=== PATIENT | male | born 1950 | race Caucasian/White ===

== ENCOUNTER 2019-10-11 07:36 | Outpatient (CLI) | payer MEDICARE, SELFPAY ==
[2019-10-11 08:31] LABS: Alanine Aminotransferase 66 U/L (4-50); Albumin Level 4.5 g/dL (3.5-5.1); Alkaline Phosphatase 124 U/L (38-126); Aspartate Amino Transferase 50 U/L (17-59); Bilirubin,Total 0.7 mg/dL (0.2-1.3); Blood Urea Nitrogen 21 mg/dL (9-20); Calcium 10.9 mg/dL (8.4-10.2); Carbon Dioxide 29 mmol/L (22-30); Chloride 99 mmol/L (98-107); Cholesterol 103 mg/dL (0-200); Estimated Glomerular Filt Rate > 60; Glucose 107 mg/dL (75-110); HDL Direct 37 mg/dL; Potassium 3.9 mmol/L (3.4-5.0); Sodium 136 mmol/L (137-145); Triglycerides 159 mg/dL (<150)
[2019-10-11 08:39] LABS: Hemoglobin A1C 5.8 % (<5.7)
[2019-10-11 08:41] LABS: LDL Cholesterol Direct 45 mg/dL
== END 2019-10-11 07:37 | disposition home or self-care (01) ==
LOC: ANHLAB 07:40
PROVIDERS: PCP Internal Medicine; Visit Provider Internal Medicine
DX: E78.5 Hyperlipidemia, unspecified (principal); E11.9 Type 2 diabetes mellitus without complications; I10 Essential (primary) hypertension; R94.5 Abnormal results of liver function studies
CPT/HCPCS: 36415; 80053; 80061; 83036

== ENCOUNTER 2019-12-07 15:47 | Outpatient (CLI) | payer MEDICARE, SELFPAY ==
[2019-12-07 16:58] LABS: Anion Gap 9 mmol/L (8-16); Blood Urea Nitrogen 24 mg/dL (9-20); Calcium 12.6 mg/dL (8.4-10.2); Carbon Dioxide 30 mmol/L (22-30); Chloride 97 mmol/L (98-107); Estimated Glomerular Filt Rate > 60; Glucose 93 mg/dL (75-110); Phosphorus 2.8 mg/dL (2.5-4.5); Potassium 4.1 mmol/L (3.4-5.0); Sodium 136 mmol/L (137-145); Uric Acid 7.5 mg/dL (3.5-8.5)
[2019-12-07 18:01] LABS: Vitamin D 25 Hydroxy 40.4 ng/mL
[2019-12-09 11:05] LABS: Kappa\\Lambda Light Chains 1.76 (0.26-1.65)
[2019-12-10 06:15] LABS: Angiotensin Converting Enzyme 9 U/L (9-67)
== END 2019-12-07 15:48 | disposition home or self-care (01) ==
LOC: ANHLAB 15:56
PROVIDERS: PCP Internal Medicine; Visit Provider Internal Medicine Nephrology
DX: E83.52 Hypercalcemia (principal); I10 Essential (primary) hypertension; N20.0 Calculus of kidney
CPT/HCPCS: 36415; 80069; 82164; 82306; 83883; 83970; 84443; 84550; 86334; 86335

== ENCOUNTER 2019-12-09 12:58 | Outpatient (CLI) | payer MEDICARE, SELFPAY ==
[2019-12-16 04:43] LABS: Total Volume 1200 mL; Urine Calcium 53.8 mg/dL
== END 2019-12-09 12:59 | disposition home or self-care (01) ==
PROVIDERS: PCP Internal Medicine; Visit Provider Internal Medicine Nephrology
DX: E83.52 Hypercalcemia (principal); I10 Essential (primary) hypertension; N20.0 Calculus of kidney
CPT/HCPCS: 82131; 82340

== ENCOUNTER 2019-12-27 08:24 | Outpatient (CLI) | payer MEDICARE, SELFPAY ==
--- NOTE | ~2019-12-27 | NM_ITS ---
EXAMINATION: NM parathyroid w imaging DATE: 12/27/2019 11:48 INDICATION: Hyperparathyroidism. Hypercalcemia. TECHNIQUE: 20.5 mCi Tc99m sestamibi was administered intravenously. Anterior images of the neck were obtained immediately and at 2 hours. SPECT images of the neck were obtained. COMPARISON: None. FINDINGS: There is no focus of persistent activity in the area of the thyroid or mediastinum to sugge st parathyroid adenoma. IMPRESSION: 1. No evidence of a parathyroid adenoma. Reviewed, dictated and finalized at location A.
== END 2019-12-27 08:25 | disposition home or self-care (01) ==
PROVIDERS: PCP Internal Medicine; Visit Provider Internal Medicine Nephrology
DX: E21.0 Primary hyperparathyroidism (principal)
CPT/HCPCS: 78070; A9500

== ENCOUNTER 2020-01-18 13:42 | Outpatient (CLI) | payer MEDICARE, SELFPAY ==
--- NOTE | ~2020-01-18 | NM_ITS ---
EXAMINATION: NM thyroid scan w uptake DATE: 01/19/2020 14:42 INDICATION: Hyperparathyroidism COMPARISON: None. TECHNIQUE: 357 microcuries I-123 was administered orally in capsule form. Scintigraphic images of th e thyroid gland were obtained at 24 hours. Thyroid uptake was calculated by the technologist. FINDINGS: The thyroid uptake is 31.6% (normal 10-30%), with the right lobe measuring 17.4% uptake and the left 14.6%. There is no focal area of decreased or increased activity to suggest hypofunctioning or hyperf unctioning nodule. There is no correlate for the focus of persistent uptake along the midline inferio r to the thyroid seen on the prior sestamibi study which likely represents a parathyroid adenoma. IMPRESSION: 1. Normal thyroid scintigraphy and 24-hour iodine uptake. 2. Previously identified focus of persistent uptake in the midline inferior to the thyroid is without iodine uptake consistent with parathyroid adenoma. Reviewed, dictated and finalized at location A.
== END 2020-01-18 13:43 | disposition home or self-care (01) ==
PROVIDERS: PCP Internal Medicine; Visit Provider Internal Medicine Nephrology
DX: E21.0 Primary hyperparathyroidism (principal); R93.89 Abnormal findings on diagnostic imaging of other specified body structures
CPT/HCPCS: 78014; A9516

== ENCOUNTER 2020-05-19 07:25 | Outpatient (CLI) | payer MEDICARE, SELFPAY ==
[2020-05-19 08:10] LABS: Alanine Aminotransferase 60 U/L (4-50); Albumin Level 4.5 g/dL (3.5-5.1); Alkaline Phosphatase 118 U/L (38-126); Anion Gap 6 mmol/L (8-16); Aspartate Amino Transferase 49 U/L (17-59); Bilirubin,Total 0.8 mg/dL (0.2-1.3); Blood Urea Nitrogen 23 mg/dL (9-20); Calcium 12.2 mg/dL (8.4-10.2); Carbon Dioxide 31 mmol/L (22-30); Chloride 100 mmol/L (98-107); Cholesterol 93 mg/dL (0-200); Estimated Glomerular Filt Rate > 60; Glucose 101 mg/dL (75-110); HDL Direct 38 mg/dL; Potassium 4.1 mmol/L (3.4-5.0); Sodium 137 mmol/L (137-145); Triglycerides 155 mg/dL (<150)
[2020-05-19 08:11] LABS: LDL Cholesterol Direct 35 mg/dL
[2020-05-19 08:17] LABS: Hemoglobin A1C 5.3 % (<5.7)
[2020-05-19 08:30] LABS: Prostate Specific Antigen 3.9 ng/mL (< OR = 4.0)
== END 2020-05-19 07:26 | disposition home or self-care (01) ==
PROVIDERS: PCP Internal Medicine; Visit Provider Internal Medicine
DX: E78.5 Hyperlipidemia, unspecified (principal); E11.9 Type 2 diabetes mellitus without complications; I10 Essential (primary) hypertension; K76.0 Fatty (change of) liver, not elsewhere classified; R97.20 Elevated prostate specific antigen [PSA]
CPT/HCPCS: 36415; 80053; 80061; 83036; 84153

== ENCOUNTER 2021-01-31 07:10 | Outpatient (CLI) | payer MEDICARE, SELFPAY ==
[2021-01-31 07:49] LABS: Alanine Aminotransferase 57 U/L (4-50); Albumin Level 4.7 g/dL (3.5-5.1); Alkaline Phosphatase 129 U/L (38-126); Anion Gap 10 mmol/L (8-16); Aspartate Amino Transferase 42 U/L (17-59); Bilirubin,Total 1.1 mg/dL (0.2-1.3); Blood Urea Nitrogen 20 mg/dL (9-20); Calcium 13.5 mg/dL (8.4-10.2); Carbon Dioxide 30 mmol/L (22-30); Chloride 96 mmol/L (98-107); Cholesterol 86 mg/dL (0-200); Estimated Glomerular Filt Rate > 60; Glucose 100 mg/dL (65-110); HDL Direct 36 mg/dL; Potassium 3.8 mmol/L (3.4-5.0); Sodium 136 mmol/L (137-145); Triglycerides 136 mg/dL (<150)
[2021-01-31 08:00] LABS: LDL Cholesterol Direct 30 mg/dL
[2021-01-31 08:05] LABS: Hemoglobin A1C 5.1 % (<5.7); Vitamin D 25 Hydroxy 38.5 ng/mL
== END 2021-01-31 07:11 | disposition home or self-care (01) ==
LOC: ANHLAB 07:13
PROVIDERS: PCP Internal Medicine; Visit Provider Internal Medicine
DX: E11.9 Type 2 diabetes mellitus without complications (principal); I10 Essential (primary) hypertension; E78.5 Hyperlipidemia, unspecified; E55.9 Vitamin D deficiency, unspecified
CPT/HCPCS: 36415; 80053; 80061; 82306; 83036

== ENCOUNTER 2021-02-21 08:15 | Outpatient (CLI) | payer MEDICARE, SELFPAY ==
--- NOTE | ~2021-02-21 | NM_ITS ---
EXAMINATION: NM parathyroid w imaging DATE: 02/21/2021 12:17 INDICATION: Hypercalcemia TECHNIQUE: 20 mCi Tc99m sestamibi (Cardiolite) was administered by intravenous route. Anterior images of the neck were obtained at 10 minutes, 3 hours and 5 hours. 3 hour SPECT images were also obtained . COMPARISON: 01/19/2020 and 12/27/2019 FINDINGS: Again seen is a persistent focus of increased uptake in the superior mediastinum slightly to the left of midline which was without activity on prior radioactive iodine thyroid scintigraphy and consisten t with a parathyroid adenoma. There appear to be 2 additional persistent foci of increased uptake in both the left and right thyroid lobes which can be seen on the 5 hour SPECT images appearing smaller than the overall side of the thyroid gland suspicious for additional parathyroid adenomas. IMPRESSION: 1: 3 foci of persistent uptake consistent with parathyroid adenomas, one each in the left and right t hyroid lobes and one more caudally just to left of midline in the superior mediastinum. Could conside r either thyroid ultrasound or neck CT for correlation. Reviewed, dictated and finalized at location A. LINE DISPATCH OPERATOR IMPRESSION: 1: 3 foci of persistent uptake consistent with parathyroid adenomas, one each i n the left and right thyroid lobes and one more caudally just to left of midlin e in the superior mediastinum. Could consider either thyroid ultrasound or neck CT for correlation.
== END 2021-02-21 08:16 | disposition home or self-care (01) ==
LOC: ANHIMG 08:15
PROVIDERS: PCP Internal Medicine; Visit Provider Internal Medicine
DX: E83.52 Hypercalcemia (principal); R93.89 Abnormal findings on diagnostic imaging of other specified body structures
CPT/HCPCS: 78070; A9500

== ENCOUNTER 2021-05-02 07:04 | Outpatient (CLI) | payer MEDICARE, SELFPAY ==
--- NOTE | ~2021-05-02 | CT_ITS ---
EXAMINATION: CT soft tissue neck w con DATE: 05/02/2021 07:46 INDICATION: Benign neoplasm of parathyroid gland. Hypercalcemia. Hyperparathyroidism. TECHNIQUE: Computed tomography (CT) of the neck was performed with 75 mL Omnipaque-350 intravenous co ntrast. Automated exposure control and iterative reconstruction technique were employed. The dose-jono gth product was 606.01 mGy-cm. COMPARISON: Parathyroid scintigraphy 02/21/2021, thyroid scintigraphy 01/19/2020 FINDINGS: There are likely changes of right ocular lens replacement surgery. There is a 4 mm nodule i n right thyroid lobe, likely not clinically significant. There is a 15 x 12 mm hyperenhancing mass in the anterior mediastinum. There are no pathologically enlarged lymph nodes. There is 0% stenosis of the proximal internal carotid arteries relative to normal distal artery lumen diameters. There is muc osal thickening in the paranasal sinuses. The mastoid air cells are normal. There is multifocal denta l disease. There is moderate cervical spondylosis. IMPRESSION: 1. 15 x 12 mm hyperenhancing mass in the anterior mediastinum with increased activity on parathyroid scintigraphy, but no activity on thyroid scintigraphy, consistent with a parathyroid adenoma. Reviewed, dictated and finalized at location E. E COUNTER IMPRESSION: 1. 15 x 12 mm hyperenhancing mass in the anterior mediastinum with increased ac tivity on parathyroid scintigraphy, but no activity on thyroid scintigraphy, co nsistent with a parathyroid adenoma.
[2021-05-02 07:40] LABS: Estimated Glomerular Filt Rate > 60
== END 2021-05-02 07:05 | disposition home or self-care (01) ==
PROVIDERS: PCP Internal Medicine; Visit Provider Otolaryngology
DX: D35.1 Benign neoplasm of parathyroid gland (principal); E21.3 Hyperparathyroidism, unspecified; E83.52 Hypercalcemia
CPT/HCPCS: 70491; Q9967

== ENCOUNTER → 2021-05-29 02:15 | Outpatient (CLI) | payer MEDICARE, SELFPAY ==
[2021-05-29 14:07] LABS: SARS-CoV-2 RNA PCR Negative
== END ==
PROVIDERS: PCP Internal Medicine; Visit Provider Otolaryngology
DX: Z01.812 Encounter for preprocedural laboratory examination (principal); Z20.822 Contact with and (suspected) exposure to COVID-19
CPT/HCPCS: C9803; U0003; U0005

== ENCOUNTER 2021-05-29 10:08 | Outpatient (CLI) | payer MEDICARE, SELFPAY ==
--- NOTE | 2021-05-29 10:29 | ECG_ITS ---
Measurements Intervals [place] Rate: 62 P: 0 WI: 222 QRS: -28 QRSD: 102 T: 30 QT: 381 QTc: 388 Interpretive Statements SINUS RHYTHM WITH FIRST DEGREE AV BLOCK LEFTWARD AXIS NONSPECIFIC T-WAVE ABNORMALITY NO PREVIOUS ECG AVAILABLE FOR COMPARISON Electronically Signed On 05-29-2021 12:28:21 GAS TREATER by Brodie Lewis M.D.
[2021-05-29 10:52] LABS: Anion Gap 8 mmol/L (8-16); Blood Urea Nitrogen 18 mg/dL (9-20); Calcium 13.8 mg/dL (8.4-10.2); Carbon Dioxide 31 mmol/L (22-30); Chloride 99 mmol/L (98-107); Estimated Glomerular Filt Rate > 60; Glucose 113 mg/dL (65-110); Potassium 3.8 mmol/L (3.4-5.0); Sodium 138 mmol/L (137-145)
== END 2021-05-29 10:09 | disposition home or self-care (01) ==
LOC: ANHSURGERY 10:11
PROVIDERS: Anesthesiology; PCP Internal Medicine; Visit Provider Otolaryngology
DX: Z01.818 Encounter for other preprocedural examination (principal); E11.9 Type 2 diabetes mellitus without complications; I10 Essential (primary) hypertension; R94.31 Abnormal electrocardiogram [ECG] [EKG]
CPT/HCPCS: 36415; 80048; 93005

== ENCOUNTER 2021-06-01 01:33 | Day surgery (SDC) | payer MEDICARE, SELFPAY ==
[2021-05-23 14:43] VITALS: BMI 27.1
--- NOTE | 2021-05-23 14:49 | PC.NURSE ---
Report to the Outpatient Waiting Room, entrance under the green pavilion located off [facility], at time _0900 on date __06/01/21 . OR Time: __1200 . [facility] AT 1000 - You and your visitor will be asked a series of questions to screen for COVID 19 for your protection. - A mask is required within the hospital. Preoperative COVID Testing Requirements: No COVID Test needed if: (proof is required; if not received patient will have Rapid Test prior to entry) - Patient has received COVID Vaccine at least 14 days prior to procedure date or - Patient has positive COVID test result within last 90 days of surgery date. COVID TESTING 05/29/21 @ 0840 COVID Test needed if above criteria is not met If not COVID vaccinated a COVID test must be conducted within 72 hours of surgery and patient is asked to isolate self from time of testing until procedure. You will go to the [facility] for your COVID testing. The [facility] is located at the corner of [address] [facility]. You will only be called if COVID results are positive and your surgeon may reschedule your elective surgery date. Patients may have clear liquids (water, carbonated beverages, clear teas, apple juice) until 3 hours prior to surgery with a maximum of 20 ounces. - No food from midnight until time of surgery - Infants may have breast milk until 4 hours before surgery, infant formula 6 hours prior to surgery. - Children will be allowed to drink immediately following surgery. If applicable, please bring a bottle or sippy cup to assist with drinking. Juice, water, soda, and popsicles are readily available. For infants on formula, please bring formula the day of surgery. Pacifiers are allowed. Take the following medications with a SIP of water the morning of surgery: ____NONE Medications to discontinue per physician ____ASPIRIN PER DR GARCIA Date to take last dose Please no make-up, nail gabonese, hairspray, perfume, deodorant, or body powder the day of surgery. No jewelry (including any body piercings) or valuables the day of surgery, leave them at home. Please take a shower or bath the night before, or the morning of, surgery with an antibacterial soap. Wear comfortable, loose fitting clothing. Children are encouraged to wear pajamas. - Jewelry must be removed prior to entering the operating room. Rings and piercings that are not removed may be cut off. - The hospital will not accept responsibility for valuables. - Please leave all valuables, including medications, at home the day of surgery. If you are going home after surgery, a licensed front end driver must drive you home. - NO public transportation without another adult. - We recommend that an adult stay with you for 24 hours following discharge. - We also recommend that you do not drive, make important decision, drink alcoholic beverages, or take any drugs that were not prescribed by your health care provider for at least 24 hours after your discharge time. For Pediatric surgeries, we recommend two adults accompany the child home (only one inside the building at this time). One visitor will be allowed to accompany the patient into the hospital. Patients visitor will be instructed to remain with patient at all times or leave the building. We will allow the visitor to come back to the postoperative area when patient is ready. Follow any additional instructions given to you from your surgeon. Telephone instructions given to __PATIENT and asked if any additional questions and then verbalized understanding. Patient advised to call surgeon office or pre surgery nurse liaison [phone] if any additional questions.
--- NOTE | 2021-05-31 18:09 | PM.IMHP ---
H&P: HPI History of Present Illness Date/Time: 05/31/21 18:09 Chief Complaint: parathyroid adenoma hypercalcemia Narrative: patient presents for planned surgical procedure change in symptoms no change in history Review of Systems Constitutional: Constitutional: Denies fatigue, Denies fever(s) and Denies lethargy Eyes: Eyes: Denies blurry vision and Denies change in vision ENT: Reports as per HPI Cardiovascular: Cardiovascular: Denies chest pain Respiratory: Respiratory: Denies cough Endocrine: Endocrine: Denies fatigue Hematologic/Lymphatic: Hematologic/Lymphatic: Denies easy bleeding, Denies easy bruising and Denies lymphadenopathy Allergic/Immunologic: Allergic/Immunologic: Denies seasonal rhinorrhea [facility] Past Medical History Medical History Hypercalcemia Family History Family History Mother Family history of thyroid disease Patient's mother is in good health Sibling Patient's sister is in good health Social History Social History Smoking status: Never smoker Second hand tobacco smoke exposure: No Alcohol intake: current Alcohol use details: 6 DRINKS PER MONTH Substance use: never Spiritual care concerns: No Meds Home Medications and Allergies Home Medications Medication Instructions Recorded Confirmed Type aspirin 81 mg tablet,delayed 81 mg PO DAILY 03/26/19 05/23/21 History release atorvastatin 10 mg tablet 10 mg PO DAILY #90 tablet 02/06/21 05/23/21 Rx lisinopril 20 See Rx Instructions .ROUTE 02/12/21 05/23/21 Rx mg-hydrochlorothiazide 12.5 mg .COMPLEX #180 tablet tablet metformin 500 mg tablet See Rx Instructions .ROUTE 02/12/21 05/23/21 Rx .COMPLEX #180 tablet Allergies Allergy/AdvReac Type Severity Reaction Status Date / Time No Known Allergies Allergy Verified 05/23/21 14:24 Exam Const: General: cooperative, healthy appearing, comfortable, well developed and alert HENMT: Head: normal to inspection, normocephalic and atraumatic Ears: hearing grossly normal bilaterally, external ears normal, TM's normal bilaterally and EAC's normal General nose exam: Normal external nose present, Normal nares present, No nasal polyps present, Normal nasal mucous membranes and turbinates present and Normal septum present Face and sinus: normal facial exam Mouth: Yes Normal oral and palatal mucosa present, Yes lip normal, Yes tongue normal, Yes oropharynx normal and Yes moist mucous membranes Teeth and gingiva: dentition normal and gingiva normal Throat: posterior oropharynx normal, tonsils normal and uvula midline Eyes: General: appearance normal, both eyes and all related structures Periorbital: periorbital findings normal Eyelids: eyelids normal Conjunctivae: conjunctivae normal Sclera: sclerae normal Neck: Neck: normal visual inspection, full ROM and no lymphadenopathy Thyroid: thyroid normal Lymphatic: no lymphadenopathy noted Resp: Effort & Inspection: normal respiratory effort and able to speak in complete sentences Cardio: Jugular venous distension: no JVD Neuro: Cranial nerves: Yes CN's II-XII intact bilaterally Assessment and Plan Assessment and plan (1) Parathyroid adenoma: Code(s): D35.1 - Benign neoplasm of parathyroid gland Status: Acute Assessment and Plan: plan is for the operating room 4 gland parathyroid exploration with recurrent laryngeal nerve monitoring likely will only need to excise the substernal lesion. Dr. Patten sting assisting. Will need a preoperative parathyroid level postoperative parathyroid will need a preoperative sestamibi injection. Risks were discussed including bleeding infection damage to any structure for the clavicles up as well as below the clavicles in the anterior mediastinum given that that is with the lesion is
[2021-06-01] VITALS (8 sets, daily range): BP systolic 112–136; BP diastolic 59–73; PULSE 67–90; RESP 12–16; TEMP 36.2–36.3; O2SAT 94–98
--- NOTE | ~2021-06-01 | NM_ITS ---
EXAMINATION: NM parathyroid injection only DATE: 06/01/2021 10:18 INDICATION: Hypercalcemia. TECHNIQUE: 4.4 mCi technetium Cardiolite was injected IV. No images were obtained. COMPARISON: None. FINDINGS: None. IMPRESSION: 1. Radiotracer injection for intraoperative parathyroid adenoma localization. Reviewed, dictated and finalized at location A. L FREEZING MACHINE OPERATOR
--- NOTE | 2021-06-01 07:11 | WPDHPUPDATE1 ---
History and Physical Update Update Date/Time: 06/01/21 07:11 History and Physical has been reviewed, including an updated exam of the patient. There are NO changes in the patient's condition. Risks, benefits, and alternatives have been discussed and questions answered. Patient agrees to proceed with procedure.
[2021-06-01] MEDS: LACTATED RINGERS 1,000 ML 30 ML IV CONT ×2 (09:31→14:17)
[2021-06-01] MEDS: ACETAMINOPHEN 500 MG TABLET 1000 MG PO (09:38)
[2021-06-01 09:44] LABS: Glucose Point of Care 99 mg/dl (65-105)
--- NOTE | 2021-06-01 09:44 | SUR.PREOP ---
0942 to [employer] for injection.
[2021-06-01 09:59] LABS: Parathyroid Intact 339.4 pg/mL (7.5-53.5)
--- NOTE | 2021-06-01 11:35 | WPDANESEPPF ---
Anes - Initial Pre Proc Eval Procedure: Operation Date: 06/01/21 12:30 Proposed Procedures p Parathyroid Exploration with Sestamibi Injection - Andrew Lawler MD Date/Time: 06/01/21 11:35 Surgeon: Andrew Lawler MD Pre Op Diagnosis: hypercalcemia, PARATHYROID ADENOL Patient Data Age: 71 Gender: M Height: 1.83 m Weight: 88.8 kg Last Vital Signs Temp 36.3 C L 06/01/21 09:17 Pulse 67 06/01/21 09:17 Resp 16 06/01/21 09:17 BP 117/67 06/01/21 09:17 Pulse Ox 98 06/01/21 09:17 Allergies Allergy/AdvReac Type Severity Reaction Status Date / Time No Known Allergies Allergy Verified 06/01/21 09:21 Home Medications Medication Instructions Recorded Confirmed Type aspirin 81 mg tablet,delayed 81 mg PO DAILY 03/26/19 06/01/21 History release atorvastatin 10 mg tablet 10 mg PO DAILY #90 tablet 02/06/21 06/01/21 Rx lisinopril 20 See Rx Instructions .ROUTE 02/12/21 06/01/21 Rx mg-hydrochlorothiazide 12.5 mg .COMPLEX #180 tablet tablet metformin 500 mg tablet See Rx Instructions .ROUTE 02/12/21 06/01/21 Rx .COMPLEX #180 tablet Laboratory Tests 06/01/21 06/01/21 09:11 09:35 POC Capillary Glucose 99 mg/dl mg/dl (65-105) PTH Intact 339.4 pg/mL H pg/mL (7.5-53.5) Patient hx anesthesia problems: none Family hx anesthesia problems: none Results Review: All pre-operative results and documents have been reviewed as part of the pre-operative evaluation. [facility] Past Medical History Medical History Hypercalcemia Family History Family History Mother Family history of thyroid disease Patient's mother is in good health Sibling Patient's sister is in good health Social History Social History Smoking status: Never smoker Second hand tobacco smoke exposure: No Alcohol intake: current Alcohol use details: 6 DRINKS PER MONTH Substance use: never Living arrangements: with family Spiritual care concerns: No Anes - Eval Final PreProcedure Day of Procedure 06/01/21 11:35 Patient weight: normal Heart: regular rate and rhythm Lungs: clear to auscultation and normal air movement Airway: Mallampati scale class II Neurological: alert and oriented Last oral intake: >/= 8 hours ASA classification: III Emergent: no Anesthetic plan: proceed Anesthesia type and monitoring: general Other findings: NIM tube Results Review: All pre-operative results and documents have been reviewed as part of the pre-operative evaluation. Informed Consent: The patient's anesthetic plan and its attendant risks and benefits were discussed with the patient/family/POA. Questions were solicited and answers provided to the satisfaction of the patient/family/POA.
[2021-06-01] MEDS: ceFAZolin 2 GM/D5W 50 ML 2 GM/50 ML BAG IVPB (11:57)
[2021-06-01 14:33] LABS: Glucose Point of Care 112 mg/dl (65-105)
--- NOTE | 2021-06-01 14:58 | W.PM.PROC2 ---
Procedure Note - Detailed Date of Procedure 06/01/21 Pre-op Diagnosis hypercalcemia, parathyroid adenoma substernal Post-op Diagnosis Same Procedure Performed Neck exploration for parathyroid adenoma Surgeon Andrew Lawler MD Parking Meter Installer Marin Berry MD Anesthesia General Indications See above Findings Unable to reach the anterior mediastinum given long AP diameter sternal notch not visible on CT Description of Procedure Patient identified consent verified. Patient brought operating room. Time-out performed. General anesthesia induced nerve monitoring endotracheal tube secured. Patient prepped and draped for procedure pre drawn surgical incision drawn with a marking pen 1 finger breath 1 cm above the sternal notch proximally for 5 cm long. Second time-out performed patient prepped and draped for the aforementioned procedure of note, 1.5 cc 1% lidocaine 1 100,000 parts epinephrine was injected deep to the pre drawn surgical incision. Fifteen blade utilized dissected the epidermis and dermis. Ligature utilized to dissect down to the strap musculature which is dissected blunt dissection ligature in the midline down to the trachea this was followed inferiorly with blunt dissection, bipolar electrocautery at a setting of 10 was utilized to cauterize any small bleeding vessels until the sternal notch was encountered. Sestamibi scan device revealed the largest collection or the high signal near the superior anterior corner of the sternal notch consistent with imaging. As of this point that the length or AP dimension of the sternal notch was measured at approximately 3 cm 4 cm longer than the AP length measured on CT. I was able to get into the mediastinum but did not have an appropriate angle to get to the anterior superior mediastinum of the lesion was located. At this time the decision was made to abort the procedure as moving forward could potentially cause life-threatening harm to the patient. Total blood loss was approximately 5 cc. Seven [place] drain placed midline sutured with 3 interrupted Vicryl sutures deep layers closed with 3-0 interrupted Vicryl sutures. The dermal layer was closed with 4-0 interrupted Vicryl sutures drain held good suction. Skin glue placed over the incision there were no complications the patient tolerated the procedure well. Care the patient was turned over to Anesthesiology. Estimated Blood Loss -5.0 Drains Yes Packing No Pathology Yes Complications No immediate complications Condition Stable Disposition PACU
== END 2021-06-01 16:14 | disposition home or self-care (01) ==
PROVIDERS: PCP Internal Medicine; Visit Provider Otolaryngology
PROC: (CPT 60500; principal; 2021-06-01 12:30)
DX: D35.1 Benign neoplasm of parathyroid gland (principal); E83.52 Hypercalcemia; Z79.82 Long term (current) use of aspirin; Z79.84 Long term (current) use of oral hypoglycemic drugs
CPT/HCPCS: 60500; 36415; 78808; 80048; 82948; 83970; 88305; 88331; 93005; A9270; A9500; C9803; J0330; J0690; J1170; J1200; J2250; J2405; J2704; J3010; J7120; U0003; U0005

== ENCOUNTER 2021-08-09 07:23 | Outpatient (CLI) | payer MEDICARE, SELFPAY ==
[2021-08-09 09:10] LABS: Vitamin D 25 Hydroxy 37.3 ng/mL
[2021-08-09 14:27] LABS: Alanine Aminotransferase 48 U/L (6-50); Albumin Level 4.6 g/dL (3.5-5.1); Alkaline Phosphatase 142 U/L (38-126); Anion Gap 10 mmol/L (8-16); Aspartate Amino Transferase 42 U/L (17-59); Bilirubin,Total 0.6 mg/dL (0.2-1.3); Blood Urea Nitrogen 16 mg/dL (9-20); Calcium 9.1 mg/dL (8.4-10.2); Carbon Dioxide 29 mmol/L (22-30); Chloride 98 mmol/L (98-107); Cholesterol 94 mg/dL (0-200); Estimated Glomerular Filt Rate > 60; Glucose 101 mg/dL (65-110); HDL Direct 33 mg/dL; Potassium 3.6 mmol/L (3.4-5.0); Sodium 137 mmol/L (137-145); Triglycerides 186 mg/dL (<150)
[2021-08-09 14:45] LABS: LDL Cholesterol Direct 33 mg/dL
== END 2021-08-09 07:24 | disposition home or self-care (01) ==
LOC: ANHLAB 07:26
PROVIDERS: PCP Internal Medicine; Visit Provider Internal Medicine
DX: E11.9 Type 2 diabetes mellitus without complications (principal); E78.5 Hyperlipidemia, unspecified; I10 Essential (primary) hypertension; Z12.5 Encounter for screening for malignant neoplasm of prostate; E55.9 Vitamin D deficiency, unspecified; R41.3 Other amnesia
CPT/HCPCS: 36415; 80053; 80061; 82306; 82607; 83036; 84153; 84443; G0103

== ENCOUNTER 2021-08-23 07:02 | Outpatient (CLI) | payer MEDICARE, SELFPAY ==
[2021-08-23 07:58] LABS: Prostate Specific Antigen 4.5 ng/mL (< OR = 4.0)
== END 2021-08-23 07:03 | disposition home or self-care (01) ==
PROVIDERS: PCP Internal Medicine; Visit Provider Nurse Practitioner
DX: R97.20 Elevated prostate specific antigen [PSA] (principal)
CPT/HCPCS: 36415; 84153

== ENCOUNTER 2022-02-28 08:05 | Outpatient (CLI) | payer MEDICARE, SELFPAY ==
[2022-02-28 08:30] LABS: Hemoglobin A1C 5.7 % (<5.7)
[2022-02-28 08:36] LABS: Alanine Aminotransferase 58 U/L (6-50); Albumin Level 4.6 g/dL (3.5-5.1); Alkaline Phosphatase 91 U/L (38-126); Anion Gap 10 mmol/L (8-16); Aspartate Amino Transferase 44 U/L (17-59); Bilirubin,Total 0.8 mg/dL (0.2-1.3); Blood Urea Nitrogen 25 mg/dL (9-20); Calcium 8.9 mg/dL (8.4-10.2); Carbon Dioxide 30 mmol/L (22-30); Chloride 98 mmol/L (98-107); Cholesterol 106 mg/dL (0-200); Estimated Glomerular Filt Rate > 60; Glucose 120 mg/dL (65-110); HDL Direct 36 mg/dL; Potassium 3.6 mmol/L (3.4-5.0); Sodium 138 mmol/L (137-145); Triglycerides 172 mg/dL (<150)
[2022-02-28 08:46] LABS: LDL Cholesterol Direct 45 mg/dL
[2022-02-28 09:06] LABS: Prostate Specific Antigen 4.2 ng/mL (< OR = 4.0)
== END 2022-02-28 08:06 | disposition home or self-care (01) ==
LOC: ANHLAB 08:08
PROVIDERS: PCP Internal Medicine; Visit Provider Nurse Practitioner
DX: Z12.5 Encounter for screening for malignant neoplasm of prostate (principal); E11.9 Type 2 diabetes mellitus without complications; E78.5 Hyperlipidemia, unspecified
CPT/HCPCS: 36415; 80053; 80061; 83036; 84153; G0103

== ENCOUNTER 2023-03-10 07:08 | Outpatient (CLI) | payer MEDICARE, SELFPAY ==
[2023-03-10 07:50] LABS: Alanine Aminotransferase 74 U/L (6-50); Albumin Level 4.7 g/dL (3.5-5.1); Alkaline Phosphatase 113 U/L (38-126); Anion Gap 8 mmol/L (8-16); Aspartate Amino Transferase 42 U/L (17-59); Bilirubin,Total 0.8 mg/dL (0.2-1.3); Blood Urea Nitrogen 22 mg/dL (9-20); Calcium 9.4 mg/dL (8.4-10.2); Carbon Dioxide 29 mmol/L (22-30); Chloride 99 mmol/L (98-107); Cholesterol 185 mg/dL (0-200); Estimated Glomerular Filt Rate > 60; Glucose 123 mg/dL (65-110); HDL Direct 39 mg/dL; Potassium 3.6 mmol/L (3.4-5.0); Sodium 136 mmol/L (137-145); Triglycerides 242 mg/dL (<150)
[2023-03-10 08:01] LABS: LDL Cholesterol Direct 102 mg/dL
[2023-03-10 08:35] LABS: Vitamin D 25 Hydroxy 19.4 ng/mL
[2023-03-10 09:32] LABS: Creatinine Urine 149.6 mg/dL
[2023-03-10 09:38] LABS: MALB Creatinine Ratio 5.9 mg/g (0-30); Microalbumin Urine Random 8.8 mg/L (0-16.7)
[2023-03-10 12:11] LABS: Hemoglobin A1C 6.2 % (<5.7)
== END 2023-03-10 07:09 | disposition home or self-care (01) ==
PROVIDERS: PCP Nurse Practitioner; Visit Provider Nurse Practitioner
DX: E78.5 Hyperlipidemia, unspecified (principal); E11.9 Type 2 diabetes mellitus without complications; E55.9 Vitamin D deficiency, unspecified
CPT/HCPCS: 36415; 80053; 80061; 82043; 82306; 83036

== ENCOUNTER 2023-09-15 06:45 | Outpatient (CLI) | payer MEDICARE, SELFPAY ==
[2023-09-15 07:46] LABS: Alanine Aminotransferase 39 U/L (6-50); Albumin Level 4.6 g/dL (3.5-5.1); Alkaline Phosphatase 110 U/L (38-126); Anion Gap 9 mmol/L (4-12); Aspartate Amino Transferase 30 U/L (17-59); Bilirubin,Total 1.4 mg/dL (0.2-1.3); Blood Urea Nitrogen 16 mg/dL (9-20); Calcium 9.5 mg/dL (8.4-10.2); Carbon Dioxide 31 mmol/L (22-30); Chloride 95 mmol/L (98-107); Cholesterol 93 mg/dL (0-200); Estimated Glomerular Filt Rate > 60; Glucose 130 mg/dL (65-110); HDL Direct 33 mg/dL; Potassium 3.4 mmol/L (3.4-5.0); Sodium 135 mmol/L (137-145); Triglycerides 120 mg/dL (<150)
[2023-09-15 07:58] LABS: LDL Cholesterol Direct 53 mg/dL
[2023-09-15 08:03] LABS: Hemoglobin A1C 5.5 % (<5.7)
[2023-09-15 08:09] LABS: Vitamin D 25 Hydroxy 48.1 ng/mL
== END 2023-09-15 06:46 | disposition home or self-care (01) ==
LOC: ANHLAB 06:48
PROVIDERS: PCP Nurse Practitioner; Visit Provider Nurse Practitioner
DX: E78.5 Hyperlipidemia, unspecified (principal); E11.9 Type 2 diabetes mellitus without complications; E55.9 Vitamin D deficiency, unspecified
CPT/HCPCS: 36415; 80053; 80061; 82306; 83036

== ENCOUNTER 2024-04-12 07:16 | Outpatient (CLI) | payer MEDICARE, SELFPAY ==
[2024-04-12 08:00] LABS: Alanine Aminotransferase 84 U/L (6-50); Albumin Level 4.7 g/dL (3.5-5.1); Alkaline Phosphatase 100 U/L (38-126); Anion Gap 7 mmol/L (4-12); Aspartate Amino Transferase 52 U/L (17-59); Bilirubin,Total 1.2 mg/dL (0.2-1.3); Blood Urea Nitrogen 23 mg/dL (9-20); Calcium 9.3 mg/dL (8.4-10.2); Carbon Dioxide 32 mmol/L (22-30); Chloride 98 mmol/L (98-107); Cholesterol 135 mg/dL (0-200); Estimated Glomerular Filt Rate > 60; Glucose 111 mg/dL (65-110); HDL Direct 36 mg/dL; Potassium 3.9 mmol/L (3.4-5.0); Sodium 137 mmol/L (137-145); Triglycerides 214 mg/dL (<150)
[2024-04-12 08:11] LABS: LDL Cholesterol Direct 60 mg/dL
== END 2024-04-12 07:17 | disposition home or self-care (01) ==
LOC: ANHLAB 07:17
PROVIDERS: PCP Nurse Practitioner; Visit Provider Nurse Practitioner
DX: E78.5 Hyperlipidemia, unspecified (principal); E11.9 Type 2 diabetes mellitus without complications; Z12.5 Encounter for screening for malignant neoplasm of prostate
CPT/HCPCS: 36415; 80053; 80061; 83036; 84153; G0103

== ENCOUNTER 2024-08-06 06:50 | Outpatient (CLI) | payer MEDICARE, SELFPAY ==
--- OUTSIDE RECORDS SUMMARY | 2024-08-06 06:53 | XMS_ITS | Clinical Summary ---
Author Organization [facility] Care Team Providers Care Patch Machine Operator Name Role Phone Unavailable Primary Care Provider Unavailabl e Allergies No known active allergies Medications No known medications Active Problems No known active problems Social History Tobacco Use Types Packs/Day Years Used Date Smoking Tobacco: Never Assessed Sex and Gender Information Value Date Recorded Sex Assigned at Not on file Legal Sex Male 9:16 PM CDT Gender Identity Not on file Sexual Orientation Not on file Plan of Treatment Health Maintenance Due Date Last Done Comments Hepatitis C Virus (HCV) Screening 1950 TdaP Immunization 1950 Colonoscopy 1995 Colorectal Cancer Screening 1995 Cologuard 02/06/2000 Immunochemical Fecal Occult Blood 02/06/2000 Pneumococcal Immunization (5 0+ years) (1 of 1 - PCV) 02/06/2000 Zoster Immunization (1 of 2) 02/06/2000 Influenza Immunization (#1) 2023 SARS-COV-2 Immunization ( - 2023- season) 2023 Respiratory Syncytial Virus (RSV) Immunization (Adult) (1 - 1-dose 75+ series) 2025 Hepatitis B Immunization Aged Out No longer eligible based on patient's age to complete this topic Meningococcal Immunization (ACWY) Aged Out No longer eligible based on patient's age to complete this topic Rotavirus Immunization Aged Out No lo nger eligible based on patient's age to complete this topic
--- OUTSIDE RECORDS SUMMARY | 2024-08-06 06:53 | XMS_ITS | Clinical Summary ---
Author Organization [facility] Address [address] [place] [address] Care Team Providers Care Typesetter Perforator Operator Name Role Phone Rolly Doll Primary Care Provider [phone] Source Comments [facility],non-owned Affiliates and Associated Physician Practices is amultiple site organization consisting of ambulatory clinics and hospital sitesin [place], [place], [place] and [place]. This disclosure is being madepursuant to the Care Everywhere program and may not contain all information available regarding this patient. Last updated 17.[facility] Allergies No known active allergies Medications * Be aware that medications may not be up to date on this document. Alwaysverify current medications with the patient. lisinopril-hyd roCHLOROthiazi de (PRINZIDE; ZESTORETIC) 20-25 MG tablet Take 1 tablet by mouth DAILY. 7 Active metFORMIN (GLUCOPHAGE) 500 MG tablet Take 500 mg by mouth 2 times daily with morning and evening meal. 7 Active aspirin (ASPIRIN) 81 MG tablet Take 81 mg by mouth DAILY. 7 Active oxyCODONE, immediate release, (ROXICODONE) 5 MG tabletIndicati ons:Hyperparat hyroidism (HCC),Hypercal cemia,S/P parathyroidect lydia,Mediastina l mass Take 1 (one) tablet by mouth every 4 hours as needed (breakthrough pain) 5 tablet 2 Active acetaminophen (TYLENOL) 325 MG tabletIndicati ons:Hyperparat hyroidism (HCC),Hypercal cemia,S/P parathyroidect lydia,Mediastina l mass Take 2 (two) tablets by mouth every 6 hours Maximum allowable Acetaminophen amount = 4 Grams (4000 mg) / 24 hours. 2 Active calcium carbonate (TUMS) 500 MG chew tabletIndicati ons:Hyperparat hyroidism (HCC),Hypercal cemia,S/P parathyroidect lydia,Mediastina l mass Take 2 (two) tablets by mouth every 4 hours as needed 2 Active ibuprofen (MOTRIN) 600 MG tabletIndicati ons:Hyperparat hyroidism (HCC),Hypercal cemia,S/P parathyroidect lydia,Mediastina l mass Take 1 (one) tablet by mouth every 6 hours 2 Active atorvastatin (LIPITOR) 10 MG tablet Take 1 tablet by mouth once daily 2 Active Active Problems Problem Noted Date Diagnosed Date Hypercalcemia 07/23/2021 Mediastinal mass 07/23/2021 S/P parathyroidectomy 07/23/2021 Hyperparathyroidism 07/23/2021 Benign prostatic hyperplasia 08/06/2018 Essential hypertension 08/06/2018 Hyperlipidemia 08/06/2018 Morbid obesity 08/06/2018 Type 2 diabetes mellitus without complication Melanocytic nevi of trunk 12/19/2016 Neoplasm of uncertain behavior of skin 7 Other melanin hyperpigmentation 12/19/2016 Other viral warts 12/19/2016 Senile hyperkeratosis 12/19/2016 Other hypertrophic disorders of the skin 017 Skin tag 12/19/2016 Solar lentiginosis 12/19/2016 Benign essential hypertension 07/11/2015 Blood in urine 07/11/2015 Melanocytic nevus 07/11/2015 Mixed hyperlipidemia 07/11/2015 Tobacco poisoning 07/11/2015 Polyp of colon 07/11/2015 Proteinuria 07/11/2015 Raised prostate specific antigen 07/11/2015 Steatosis of liver 07/11/2015 Type 2 diabetes mellitus 07/11/2015 Vitamin D deficiency 07/11/2015 Dyslipidemia 07/04/2014 Elevated levels of transaminase & lactic acid de hydrogenase 07/04/2014 Diabetes mellitus, type 2 04/26/2014 History of renal calculi 04/26/2014 History of colonic polyps 04/26/2014 Diabetes mellitus 01/05/2011 Hypertension 01/05/2011 Hypokalemia 01/05/2011 Syncope and collapse 01/05/2011 Chronic pansinusitis Chronic middle ear effusion, left Social History Tobacco Use Types Packs/Day Years Used Date Smoking Tobacco: Never Smokeless Tobacco: Never Alcohol Use Standard Drinks/Week Comments Yes 2 (1 standard drink = 0.6 oz pure alcohol) ocassionally.maybe 2 beers a month AUDIT-C Answer Date Recorded Q1: How often do you have a drink containing alcohol? Never 07/23/2021 Q2: How many drinks containi ng alcohol do you have on a typical day when you are drinking? Patient does not drink Q3: How often do you have si x or more drinks on one occasion? Never 07/23/2021 Hunger Vital Sign Answer Date Recorded Within the past 12 months, y ou worried that your food would run out before you got the money to buy more. Never true 07/25/19 22 Within the past 12 months, t he food you bought just didn't last and you didn't have money to get more. 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 Gender Identity Not on file Sexual Orientation Not on file Last Filed Vital Signs Vital Sign Reading Time Taken Comments Blood Pressure 124/73 08/15/2021 1:50 PM CDT Pulse 58 07/24/2021 8:13 AM CDT Temperature 36.3 C (97.4 F) 07/24/2021 8:12 AM CDT Respiratory Rate 16 08/15/2021 1:50 PM CDT Oxygen Saturation 96% 07/24/2021 8:13 AM CDT Inhaled Oxygen Concentration - - Weight 88.5 kg (195 lb) 08/15/2021 1:50 PM CDT Height 180.3 cm (5' 11 ) 08/15/2021 1:50 PM CDT Body Mass Index 27.2 08/15/2021 1:50 PM CDT Plan of Treatment Health Maintenance Due Date Last Done Comments COLOGUARD (AGES 45-75) - COLON CA SCREENING 1950 COLON MONITORING 1950 COLONOSCOPY - COLON CA SCREENING 1950 CT COLONOGRAPHY - COLON CA SCREENING 1950 Colorectal Cancer Screening 1950 FIT - COLON CA SCREENING 1950 FLEX SIG - COLON CA SCREENING 1950 HEPATITIS C SCREENING 02/01/1968 DTAP/TDAP/TD VACCINES (1 - Tdap) 1969 PNEUMOCOCCAL VACCINE 50+ (1 of 2 - PCV) 1969 ZOSTER VACCINE (1 of 2) 02/06/2000 DIABETES RETINOPATHY SCREENING 08/31/2018 DIABETES-FOOT EXAM WITH MONOFILAMENT 08/31/2018 DIABETES-HGB A1C 08/31/2018 01/05/2011 DIABETES-SERUM CREATININE 07/20/20222021, 01/06/2011, 01/05/2011, Additional history exists COVID-19 VACCINE ( season) 2023 DEPRESSION SCREENING 03/31/2024 DIABETES - URINE PROTEIN SCREENING 03/31/2024 MEDICARE AWV CALENDAR YEAR 2024 INFLUENZA VACCINE (Season Ended) 2024 Respiratory Syncytial Virus (RSV) Vaccine Pt: or over 60 yrs (1 - 1-dose 75+ series) 2025 HEPATITIS B VACCINE Aged Out No longe r eligible based on patient's age to complete this topic HIB VACCINE Aged Out No longer eligi ble based on patient's age to complete this topic HPV VACCINE Aged Out No longer eligi ble based on patient's age to complete this topic MENINGOCOCCAL (Group B) VACCINE SHARED DECISION-MAKING Aged Out No longer eligible based on patient's age to complete this topic MENINGOCOCCAL GROUPS A/C/Y/W VACCINE Aged Out No longer eligible based on patient's age to complete this topic Medical Devices Implanted Type Area Senior Lead Developer Device Identifier Shelf Expiration Date Model / Serial / Lot Tube Vnt Berny 1.27mm 1.5mm Clr Btn Ear Implanted:Qty: 1 on 08/13/2018 by Nima Mora MD at [facility] Left: Nose [employer] 09/16/2026 [id number] / / [id number] Procedures Procedure Name Priority Date/Time Associated Diagnosis Comments BASIC METABOLIC PANEL (CALCIUM TOTAL) Routine 07/20/2021 10:52 AM CDT Vitamin D deficiency from Last 3 Months or Most Recently Relevant to Health Maintenance Results * (ABNORMAL) BASIC METABOLIC PANEL (CALCIUM TOTAL) (07/20/2021 10:52 AM CDT) BUN 18 7 - 26 mg/dL 07/20/2021 12:00 PM [facility] Creatinine 1.08 0.71 - 1.16 mg/dL 07/20/2021 12:00 PM [facility] Sodium 139 136 - 145 mmol/L 07/20/2021 12:00 PM [facility] Potassium 3.4(L) 3.5 - 4.5 mmol/L 07/20/2021 12:00 PM [facility] Chloride 98 98 - 107 mmol/L 07/20/2021 12:00 PM [facility] CO2 28 22 - 29 mmol/L 07/20/2021 12:00 PM [facility] Glucose 96 70 - 115 mg/dL 07/20/2021 12:00 PM [facility] Calcium 14.9(HH) 8.4 - 10.2 mg/dL 07/20/2021 12:00 PM [facility] Anion Gap 16 8 - 18 07/20/2021 12:00 PM [facility] BUN/Creatinine Ratio 17 7 - 23 07/20/2021 12:00 PM [facility] Osmolality Calculated 290 270 - 300 mOsm/kg 07/20/2021 12:00 PM [facility] eGFR by CKD-EPI 73(L) >=90 mL/min/1.7 3 m2 07/20/2021 12:00 PM [facility] Blood BLOOD SPECIMEN / Unknown Lab Venipuncture / Unknown 07/20/2021 10:52 AM CDT 07/20/2021 11:26 AM T us Cirilo Sun MD LAB - CHEMISTRY ORDERABLES Fi nal Result [facility] [address] [place] [address], [place] [phone] from Last 3 Months or Most Recently Relevant to Health Maintenance Insurance [employer] WE[employer] Advance Directives * Full Code (Latest Code Status on File) Date Activated Date Inactivated Comments 07/23/2021 12:10 PM 07/24/2021 12:12 PM * Full Code Date Activated Date Inactivated Comments 08/13/2018 9:04 AM 08/13/2018 8:47 PM Care Teams Typesetter Perforator Operator Relationship Specialty Start Date End Date Rolly Doll DO [address] [place] [address] PCP - General 08/10/18
--- OUTSIDE RECORDS SUMMARY | 2024-08-06 06:53 | XMS_ITS | Clinical Summary ---
Author Organization [facility] Address [address] [place] [address] Phone Care Team Providers Care Ice Plant Operator Name Role Phone Rolly Doll DO Primary Care Provider [phone] Allergies No known active allergies Medications Aspirin Buf,CaCarb-MgCar b-MgO, 81 MG tablet Take 81 mg by mouth 12/18/2016 Active atorvastatin (LIPITOR) 20 MG tablet TK 1 T PO D 10/20/2019 Active fluticasone (FLONASE) 50 MCG/ACT nasal spray SHAKE LQ AND U 2 SPRAYS IEN D 11/11/2019 Active lisinopril-hydro CHLOROthiazide (PRINZIDE,ZESTOR ETIC) 20-12.5 MG per tablet TK 1 T PO BID 10/20/2019 Active metFORMIN (GLUCOPHAGE) 500 MG tablet TK 1 T PO BID 10/26/2019 Active Active Problems Problem Noted Date Diagnosed Date Primary hyperparathyroidism 02/26/2020 Diabetes mellitus without me ntion of complication, type II or unspecified type, not stated as uncontrolled 12/07/2019 Hyperlipidemia 08/06/2018 Blood in urine 07/11/2015 Proteinuria 07/11/2015 Dyslipidemia 07/04/2014 History of calculus of kidney 04/26/2014 Hypertension 01/05/2011 Social History Tobacco Use Types Packs/Day Years Used Date Smoking Tobacco: Never Smokeless Tobacco: Never Alcohol Use Standard Drinks/Week Comments Yes 1 (1 standard drink = 0.6 oz pur e alcohol) Sex and Gender Information Value Date Recorded Sex Assigned at Not on file Legal Sex Male 11:39 AM MDT Gender Identity Not on file Sexual Orientation Not on file Last Filed Vital Signs Vital Sign Reading Time Taken Comments Blood Pressure 122/70 12/07/2019 3:21 PM CDT Pulse 84 12/07/2019 3:21 PM CDT Temperature 37.2 C (99 F) 12/07/2019 3:21 PM CDT Respiratory Rate - - Oxygen Saturation - - Inhaled Oxygen Concentration - - Weight 99.8 kg (220 lb) 12/07/2019 3:21 PM CDT Height 182.9 cm (6') 12/07/2019 3:21 PM CDT Body Mass Index 29.84 12/07/2019 3:21 PM CDT Plan of Treatment Health Maintenance Due Date Last Done Comments Diabetic Foot Exam 02/06/1960 Ophthalmology Exam 02/06/1960 Pneumococcal PPSV23/PCV13 65 + Years / High and Highest Risk (1 of 5 - PCV) 1969 Influenza Vaccine (Season Ended) 2024 Insurance [employer] MEDICARE Care Teams Ice Plant Operator Relationship Specialty Start Date End Date Rolly Doll DO [address] [place] [address] PCP - General Internal Medicine 10/18/19
--- OUTSIDE RECORDS SUMMARY | 2024-08-06 06:53 | XMS_ITS | Clinical Summary ---
Author Organization [facility] Address [address] [place] [address] Phone Care Team Providers Care Spindle Setter Name Role Phone Unavailable Primary Care Provider Unavailabl e Allergies No known active allergies Medications lisinopril-hydro chlorothiazide (ZESTORETIC) 20-25 mg Oral tablet Take 1 Tab by mouth daily. Active metFORMIN (GLUCOPHAGE) 500 mg Oral tablet Take 1,000 mg by mouth daily. 01/05/2011 Active cloNIDine (CATAPRES) 0.2 mg Oral tablet Take 0.2 mg by mouth daily at bedtime. 01/05/2011 Active aspirin (ECOTRIN EC) 81 mg Oral TbEC Take 81 mg by mouth daily. Active potassium chloride SR (K-DUR) 20 mEq Oral tablet Take 1 Tab by mouth daily. 30 Tab 1 01/06/2011 Active Active Problems Problem Noted Date Diagnosed Date Syncope and collapse 01/05/2011 Hypokalemia 01/05/2011 Diabetes mellitus 01/05/2011 Hypertension 01/05/2011 Family History Medical History Relation Name Comments Healthy Brother Healthy Daughter 1 Healthy Daughter 2 Other Father farm accident Healthy Mother Other Other unkle cerebral aneury sm Healthy Son Relation Name Status Comments Brother Alive Daughter 1 Alive Daughter 2 Alive Father Mother Alive Other unkle Alive Son Alive Social History Tobacco Use Types Packs/Day Years Used Date Smoking Tobacco: Never Smokeless Tobacco: Never Alcohol Use Standard Drinks/Week Comments No 0 (1 standard drink = 0.6 oz pur e alcohol) maybe2 beer a month Sex and Gender Information Value Date Recorded Sex Assigned at Not on file 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 Gender Identity Not on file Sexual Orientation Not on file Last Filed Vital Signs Vital Sign Reading Time Taken Comments Blood Pressure 102/54 01/06/2011 11:00 AM CDT Pulse 72 01/06/2011 11:00 AM CDT Temperature 36.4 C (97.6 F) 01/06/2011 11:00 AM CDT Respiratory Rate 18 01/06/2011 11:0 0 AM CDT Oxygen Saturation 98% 01/06/2011 11: 00 AM CDT Inhaled Oxygen Concentration - - Weight 106.2 kg (234 lb 2.1 oz) 01/06/2011 4:20 AM CDT Height 182.9 cm (6') 01/05/2011 1:54 PM CDT Body Mass Index 31.75 01/05/2011 1:54 PM CDT Plan of Treatment Health Maintenance Due Date Last Done Comments DIABETES ANNUAL FOOT EXAM 02/06/1968 DIABETES ANNUAL RETINAL EXAM 02/06/1968 DIABETES MICROALBUMIN ANNUAL SCREEN 02/06/1968 LDL CHOLESTEROL ANNUAL 02/06/1968 DTAP/TDAP/TD VACCINES (1 - Tdap) 1969 PNEUMOCOCCAL VACCINE 50+ YEARS (1 of 2 - PCV) 02/05/19 69 COLORECTAL SCREENING 1995 Colorectal Cancer Screening 1995 FIT-DNA Q 3 years 1995 FIT/FOBT Q 1 year 1995 Flex Sig/CT Colonography Q 5 years 1995 ZOSTER VACCINE (1 of 2) 02/06/2000 DIABETES HBA1C Q 6 MONTHS 07/07/2011 01/05/2011 INFLUENZA VACCINE (#1) 2023 RSV VACCINE (60+ or ) (1 - 1-dose 75+ series) 2025 Procedures Procedure Name Priority Date/Time Associated Diagnosis Comments HEMOGLOBIN A1C Add on 01/05/2011 2:45 PM CDT from Last 3 Months or Most Recently Relevant to Health Maintenance Results * HEMOGLOBIN A1C (01/05/2011 2:45 PM CDT) HEMOGLOBIN A1C 5.6 4.8 - 5.9 % of Hgb [facility] [employer] [facility] EST. AVG GLUCOSE, A1C 114 mg/dL [facility] [employer] [facility] Comment: The reported estimated average glucose (eAG) based on the HbA1c determination is calculated using the ADAG study equation. Further interpretative information is available in the Laboratory Services Policy Manual on the [facility] Intranet at: [email or web address]/ Blood specimen (specimen) 01/05/2011 2:45 PM CDT 01/05/2011 2:45 PM CDT Oziel Morrison DO CHEMISTRY ORDERABLES Final R esult [facility] LABORATORY SERVICES [facility]# [id number] [address] [place] [address] from Last 3 Months or Most Recently Relevant to Health Maintenance Advance Directives For more information, please contact: [phone] * Full Code (Latest Code Status on File) Date Activated Date Inactivated Comments 01/05/2011 9:51 PM 01/06/2011 6:32 PM
--- OUTSIDE RECORDS SUMMARY | 2024-08-06 06:53 | XMS_ITS | CONTINUITY OF CARE DOCUMENT ---
Author Name luli rockwell Address Unknown Organization [facility] Address [address] [place] [address] Phone [phone] Care Team Providers Care Scrap Shear Operator Name Role Phone Kaleb BAEZ, Jaime Unavailable DON BAEZ, FRED Unavailable [phone] INSURANCE PROVIDERS Payer name Policy type / Coverage type Cathie red green party ID [facility] [id number]
[2024-08-06 08:01] LABS: Alanine Aminotransferase 102 U/L (6-50); Albumin Level 4.7 g/dL (3.5-5.1); Alkaline Phosphatase 103 U/L (38-126); Anion Gap 9 mmol/L (4-12); Aspartate Amino Transferase 72 U/L (17-59); Bilirubin,Total 0.8 mg/dL (0.2-1.3); Blood Urea Nitrogen 25 mg/dL (9-20); Calcium 9.1 mg/dL (8.4-10.2); Carbon Dioxide 34 mmol/L (22-30); Chloride 96 mmol/L (98-107); Cholesterol 162 mg/dL (0-200); Estimated Glomerular Filt Rate > 60; Glucose 110 mg/dL (65-110); HDL Direct 40 mg/dL; Potassium 3.7 mmol/L (3.4-5.0); Sodium 139 mmol/L (137-145); Triglycerides 278 mg/dL (<150)
[2024-08-06 08:13] LABS: LDL Cholesterol Direct 80 mg/dL
[2024-08-06 08:29] LABS: Prostate Specific Antigen 6.7 ng/mL (< OR = 4.0)
== END 2024-08-06 06:51 | disposition home or self-care (01) ==
PROVIDERS: PCP Nurse Practitioner; Visit Provider Nurse Practitioner
DX: E78.5 Hyperlipidemia, unspecified (principal); R97.20 Elevated prostate specific antigen [PSA]; E11.9 Type 2 diabetes mellitus without complications
CPT/HCPCS: 36415; 80053; 80061; 83036; 84153

== ENCOUNTER 2024-09-30 07:40 | Outpatient (CLI) | payer MEDICARE, SELFPAY ==
--- OUTSIDE RECORDS SUMMARY | 2024-09-30 07:43 | XMS_ITS | Continuity of Care Document ---
Author Organization [facility] Address [address] [place] [address] Phone Care Team Providers Care Golf Cart Attendant Name Role Phone Unavailable Unavailable Unavailable Procedures Procedure Date COMPREHENSIVE HEARING TEST TYMPANOMETRY (IMPEDANCE TESTING) 2018 Advance Directives Directive Yes / No Effective Date File Name No Information Encounters Encounter Description Practice Location Reason(s) For Visit Diagnoses Date Provider Providers Copied on Encounter [facility], [address], [place], [place], [id number] , [place] tel: [phone] [facility] Conductive hearing loss, unspecifiedUnspeci fied sensorineural hearing loss 201 9 No Information Family History Family Member Type Diagnosis Age At Onset No Information Payers Payer name Insurance type Covered libertarian ID Mir house(s) [employer] [id number] Social History Type Description Quantity Date Captured Comments Alcohol Use Details Unknown Caffeine Use Details Unknown Tobacco Use Status No Information Smoking Status No Information Sex Male Chief Complaint And Reason For Visit No Information Reason For Referral Reason For Referral No Information History Of Present Illness Encounter Date Complaint History Of Prese nt Illness No Information Functional Status Date Functional Assessmen t No Information Instructions Date Instruction Additional Infor mation No Information Assessments Type Assessment Date No Information Patient Care Teams Name Effective Dates (start - stop) Status Members No Information
--- OUTSIDE RECORDS SUMMARY | 2024-09-30 07:43 | XMS_ITS | Clinical Summary ---
Author Organization [facility] Care Team Providers Care Tractor Technician Name Role Phone Unavailable Primary Care Provider [...]
--- OUTSIDE RECORDS SUMMARY | 2024-09-30 07:43 | XMS_ITS | Clinical Summary ---
Author Organization [facility] Address [address] [place] [address] Care Team Providers Care Executive Director Sheltered Workshop Name Role Phone Rolly Doll Primary Care Provider [phone] Source Comments [facility],non-owned Affiliates and Associated Physician Practices is amultiple site organization consisting of ambulatory clinics and hospital sitesin [place], [place], [place]. This disclosure is being madepursuant to the Care Everywhere program and may not contain all information available regarding this patient. 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 Gender Identity Not on file Sexual Orientation [...] 1:50 PM CDT Height 180.3 cm (5' 11) 08/15/2021 1:50 PM CDT Body Mass Index [...] Tdap) 1969 PNEUMOCOCCAL VACCINE 50+ (1 of 1 - PCV) 02/06/2000 ZOSTER VACCINE (1 of 2) 02/06/2000 DIABETES-FOOT EXAM WITH MONOFILAMENT 08/31/2018 DIABETES-HGB A1C 08/31/2018 01/05/2011 DIABETES-SERUM CREATININE 07/20/20222021, 01/06/2011, 01/05/2011, Additional history exists COVID-19 VACCINE ( - season) 2023 DEPRESSION SCREENING 03/31/2024 DIABETES - URINE PROTEIN SCREENING 03/31/2024 INFLUENZA VACCINE (Season Ended) 2024 Respiratory Syncytial [...] this topic Medical Devices Implanted Type Area Automatic Drill Operator Device Identifier Shelf Expiration Date Model / Serial / Lot Tube Vnt Berny 1.27mm 1.5mm Clr Btn Ear Implanted:Qty: 1 on 08/13/2018 by Nima Mora MD at [facility] Left: Nose [employer] 09/16/2026 [id number] / / [id number] Procedures Procedure Name Priority Date/Time Associated Diagnosis Comments BASIC METABOLIC PANEL (CALCIUM TOTAL) Routine 07/20/2021 10:52 AM CDT Vitamin D deficiency from Last 3 Months or Most Recently Relevant to Health Maintenance Results * (ABNORMAL) BASIC METABOLIC PANEL (CALCIUM TOTAL) (07/20/2021 10:52 AM CDT) BUN 18 7 - 26 mg/dL 07/20/2021 12:00 PM [facility] Creatinine 1.08 0.71 - 1.16 mg/dL 07/20/2021 12:00 PM [facility] Sodium 139 136 - 145 mmol/L 07/20/2021 12:00 PM [facility] Potassium 3.4(L) 3.5 - 4.5 mmol/L 07/20/2021 12:00 PM [facility] Chloride 98 98 - 107 mmol/L 07/20/2021 12:00 PM [facility] CO2 28 22 - 29 mmol/L 07/20/2021 12:00 PM [facility] Glucose 96 70 - 115 mg/dL 07/20/2021 12:00 PM [facility] Calcium 14.9(HH) 8.4 - 10.2 mg/dL 07/20/2021 12:00 PM [facility] Anion Gap 16 8 - 18 07/20/2021 12:00 PM [facility] BUN/Creatinine Ratio 17 7 - 23 07/20/2021 12:00 PM [facility] Osmolality Calculated 290 270 - 300 mOsm/kg 07/20/2021 12:00 PM [facility] eGFR by CKD-EPI 73(L) >=90 mL/min/1.7 3 m2 07/20/2021 12:00 PM [facility] Blood BLOOD SPECIMEN / Unknown Lab Venipuncture / Unknown 07/20/2021 10:52 AM CDT 07/20/2021 11:26 AM [facility] us Cirilo Sun MD LAB - CHEMISTRY ORDERABLES Fi nal Result [facility] [address] [place] [address], [place] [phone] from Last 3 Months or Most Recently Relevant to Health Maintenance Insurance [employer] Advance Directives * Full Code (Latest Code Status on File) Date Activated Date Inactivated Comments 07/23/2021 12:10 PM 07/24/2021 12:12 PM * Full Code Date Activated Date Inactivated Comments 08/13/2018 9:04 AM 08/13/2018 8:47 PM Care Teams Executive Director Sheltered Workshop Relationship Specialty Start Date End Date Rolly Doll DO [address] [place] [address] PCP - General 08/10/18
--- OUTSIDE RECORDS SUMMARY | 2024-09-30 07:43 | XMS_ITS | Clinical Summary ---
Author Organization [facility] Address [address] [place] [id number] Phone Care Team Providers Care Frame Straightener Name Role Phone Rolly Doll DO Primary Care Provider [phone] Allergies No known active allergies Medications Aspirin [...] Health Maintenance Due Date Last Done Comments Pneumococcal PPSV23/PCV13 65 + Years / Low and Medium Risk (1 of 2 - PCV) 02/06/2000 Influenza Vaccine (Season Ended) 2024 Insurance [employer] MEDICARE Care Teams Frame Straightener Relationship Specialty Start Date End Date Rolly Doll DO [address] [place] [address] PCP - General Internal Medicine 10/18/19
--- OUTSIDE RECORDS SUMMARY | 2024-09-30 07:43 | XMS_ITS | Clinical Summary ---
Author Organization [facility] Address 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 AVG GLUCOSE, A1C 114 mg/dL [facility] [employer] [facility] Comment: The reported estimated average glucose (eAG) based on the HbA1c determination is calculated using the ADAG study equation. Further interpretative information is available in the Laboratory Services Policy Manual on the [facility] Intranet at: [email or web address]/ Blood specimen (specimen) 01/05/2011 2:45 PM CDT 01/05/2011 2:45 PM CDT Oziel Morrison DO CHEMISTRY ORDERABLES Final R esult [facility] LABORATORY SERVICES [facility]# [id number] [address] [place] [address] from Last 3 Months or Most Recently Relevant to Health Maintenance Advance Directives For more information, please contact: [phone] * Full Code (Latest Code Status on File) Date Activated Date Inactivated Comments 01/05/2011 9:51 PM 01/06/2011 6:32 PM
--- OUTSIDE RECORDS SUMMARY | 2024-09-30 07:43 | XMS_ITS | Continuity of Care Document ---
Author Organization [facility] Address [address] [place] [phone] Phone Care Team Providers Care Tablet Repair Name Role Phone Lucretia Medrano Patricia Unavailable Unav ailable Advance Directives Directive Yes / No Effective Date File Name No Information Encounters Encounter Description Practice Location Reason(s) For Visit Diagnoses Date Provider Providers Copied on Encounter [facility], [address] [place] [address], [id number], tel:[phone] [facility] [place] No Information [phone] 0 Lucretia Medrano. [address] [place] [address], [id number], . tel:[phone] Family History Family Member Type Diagnosis Age At Onset No Information Payers Payer name Insurance type Covered constitution party ID Authoriza tion(s) No Information Social History Type Description Quantity Date Captured Comments Sex Male Smoking Status No Information Chief Complaint And Reason For Visit No [...]
--- NOTE | 2024-10-26 20:41 | WPDSLEEPSTUD ---
Sleep Study Date of Study: 09/30/24 Ordering Provider: Mika Downs APRN Interpreting Physician: Alba Wong DO Sleep Study Type: Polysomnogram Height: 1.83 m Weight: 95.254 kg Body Mass Index: 28.5 Neck Circumference (inches): 18 [place]: 2 Reason for Sleep Study Nocturnal gasping Sleep History The patient is a 74-year-old male that had a sleep study ordered by his primary care for evaluation of sleep apnea. The patient frequently awakens from sleep short of breath. He denies awakening at night with heartburn, belching or cough. He denies snoring. He denies having trouble sleeping when he has a cold. He occasionally wakes up gasping for air throughout the night. He denies having breathing problems at night observed by himself or others. He denies sweating excessively at night. He denies having heart palpitations or irregular heartbeats during the night. He denies falling asleep during the day and while driving. He denies sleep paralysis, cataplexy and hypnagogic/ hypnopompic hallucinations. He denies having trouble at school or work due to sleepiness. He denies feeling afraid of going to sleep. He occasionally has nightmares. He occasionally remembers his dreams. He denies having thoughts racing through his mind. He denies feeling sad, depressed or anxious. He denies having muscular tension. He denies noticing parts of his body jerk. He denies kicking during the night. He denies having crawling and aching feelings in his legs and denies having leg pain during the night. He denies grinding his teeth during sleep and denies awakening with morning jaw pain. He denies being bothered by pain during the day and denies being awakened by pain during the night. He occasionally wakes up feeling stiff in the morning. He denies waking up with sore or achy muscles. He denies waking up with pain in the neck, spine or other joints. He goes to bed at 10:00 p.m. every night. It takes him 15 minutes to fall asleep. He wakes up once throughout the night to adjust his position and he is able to fall back asleep within a few minutes. He wakes up at 7:30 a.m. every morning. He typically gets 9-10 hours of sleep per night. He currently lives with his . He denies consuming any caffeinated beverages within 2 hours of bedtime. He denies engaging in physical exercise before bedtime. He will watch television before falling asleep. He denies taking naps in afternoon or the evening. He will consume caffeinated beverages throughout the day. He denies alcohol and recreational drug use. [facility] Past Medical History Medical History Pineal gland dysfunction BMI 29.0-29.9,adult Hypercalcemia Type II diabetes mellitus Mixed hyperlipidemia Vitamin D deficiency, unspecified Family History Family History Mother Family history of thyroid disease Patient's mother is in good health Sibling Vasculitis Father , farm accident Cerebrovascular accident Social History Social History Smoking status: Never smoker Second hand tobacco smoke exposure: No Alcohol intake: current Alcohol use details: 6 DRINKS PER MONTH Substance use: never Substance use type: does not use Do You Feel Safe in your Home?: Yes Lack of Transportation: No Lack of Food: Never True Current Housing: I Have Housing Concerned About Future Housing: No Difficulty Paying Gas/Electric Bills: No Difficulty Paying for Meds: No Currently Unemployed: No Education: Associate Degree Difficulty w/ Childcare or Family Care: No Living arrangements: with family Occupation/Education: retired Additional occupation/education comments: independent driver Gender identity (if verbalized by the patient): Male Spiritual care concerns: No Medications Home Medications ?Medication ?Instructions ?Recorded ?Confirmed ?Type metformin 500 mg tablet See Rx Instructions .Route 04/15/24 08/12/24 Rx .COMPLEX #180 tabs trazodone 100 mg tablet 100 mg PO QHS PRN sleep #30 tabs 08/11/24 08/11/24 Rx lisinopril 20 See Rx Instructions .Route 09/21/24 Rx mg-hydrochlorothiazide 12.5 mg .COMPLEX #180 tabs tablet atorvastatin 10 mg tablet 10 mg PO DAILY #90 tabs 10/18/24 Rx Sleep Procedure A full night polysomnogram using the [employer] multi-channel system recorded the standard physiologic parameters including EEG, EOG, submentalis EMG, anterior tibialis EMG, EKG, body position, nasal and oral airflow using nasal pressure sensor and thermistor.? Respiratory parameters of chest and abdominal movements were recorded with Respiratory Inductance Plethysmography belts. Oxygen saturation was recorded by pulse oximetry. Video monitoring was also performed. Sleep stages, periodic limb movements, and EEG arousals were scored in 30 second epochs according to the criteria of the AASM Scoring Manual. The Apnea-Hypopnea Index was calculated using CMS guidelines for definition of hypopnea with 4% O2 desaturations while scoring respiratory events. Sleep Architecture The total recording time was 464.6 minutes.? The total sleep time was 239.5 minutes. Sleep latency was 13.4 minutes. REM latency was 222.0 minutes. Sleep efficiency was 51.6%. The patient had 37 awakenings for an awakening index of 9.3. Wake after sleep onset time was 211.5 minutes. The patient spent 35.0 minutes, 14.6% of total sleep time in Stage N1. The patient spent 157.5 minutes, 65.8% in Stage N2. The patient spent 0.0 minutes, 0.0% in Stage N3. The patient spent 47.0 minutes, 19.6% in Stage REM sleep. Respiratory Analysis The patient had 20 hypopneas, 63 obstructive apneas and 1 central apnea for an overall Apnea Hypopnea Index of 21.0. The REM Apnea Hypopnea Index was 29.4. The NREM Apnea Hypopnea Index was 20.6. The patient had a Central Apnea Hypopnea Index of 0.3. There was no evidence of Héctor-Talley Respirations. Arousals There were 94 total arousals for an arousal index of 23.5. There were 64 spontaneous arousals for an index of 16.0. There were 25 arousals due to respiratory events for an index of 6.3. There were 3 arousals due to periodic limb movements for an index of 0.8.? There were 0 arousals due to isolated limb movements for an index of 0. Periodic Limb Movements The patient had 3 isolated limb movements with an index of 0.8. The patient had 24 periodic limb movements with an index of 6.0. Patient had a total of 27 limb movements with a total limb movement index of 6.8. Oximetry Data The patient had an average oxygen saturation of 91.4% in sleep with a minimum oxygen saturation of 85.0% and a maximum oxygen saturation of 96.0%. The patient had 20 oxygen desaturations that were 4% or greater resulting in an Oxygen Desaturation Index of 5.0.? The patient spent 25.5 minutes, 5.5% of total sleep time with an oxygen saturation below 88%. Snoring Profile Moderate snoring was present throughout the study. Cardiac Profile The EKG showed normal sinus rhythm. No arrhythmias or premature beats were seen. The patient had an average pulse rate of 54.4 bpm with a minimum pulse of rate of 48.0 bpm and a maximum pulse rate of 74.0 bpm.? EEG Profile No signs of seizure activity seen. Assessment and Plan Assessment and Plan (1) CROW (obstructive sleep apnea): Code(s): G47.33 - Obstructive sleep apnea (adult) (pediatric) Status: Acute Assessment and Plan: The patient had an overall AHI of 21.0 with desaturation down to 85%. This is consistent with moderate sleep apnea. I recommend that the patient have a CPAP Titration with the use of a hypnotic to ensure we obtain enough sleep data and find an optimal pressure setting. Data The data obtained during this sleep study is adequate for interpretation. Certification This sleep study has been reviewed by a board certified sleep medicine physician.
[2024-10-27 14:33] VITALS: BMI 28.5
== END 2024-10-01 06:25 | disposition home or self-care (01) ==
LOC: ANHCSM 07:40
PROVIDERS: PCP Nurse Practitioner; Visit Provider Nurse Practitioner
DX: G47.33 Obstructive sleep apnea (adult) (pediatric) (principal); G47.10 Hypersomnia, unspecified; R06.89 Other abnormalities of breathing; I10 Essential (primary) hypertension
CPT/HCPCS: 95810

== ENCOUNTER 2025-02-11 08:44 | Outpatient (CLI) | payer MEDICARE, SELFPAY ==
--- OUTSIDE RECORDS SUMMARY | 2025-02-11 08:59 | XMS_ITS | Clinical Summary ---
Author Organization [facility] Address [address] [place] [phone] Phone Care Team Providers Care Grounds Restoration Specialist Name Role Phone Rolly Doll DO Primary Care Provider [phone] Allergies No known active allergies Medications Aspirin [...] of 2 - PCV) 02/06/2000 Influenza Vaccine (#1) 2024 Insurance [employer] MEDICARE Care Teams Grounds Restoration Specialist Relationship Specialty Start Date End Date Rolly Doll DO [address] [place] [address] PCP - General Internal Medicine 10/18/19
--- OUTSIDE RECORDS SUMMARY | 2025-02-11 08:59 | XMS_ITS | Clinical Summary ---
Author Organization [facility] Care Team Providers Care Dinkey Engine Operator Name Role Phone Unavailable Primary Care [...] Virus (HCV) Screening 1950 TdaP Immunization 1950 Cologuard 1995 Colonoscopy 1995 Colorectal Cancer Screening 1995 Immunochemical Fecal Occult Blood 1995 Pneumococcal Immunization (5 0+ years) (1 of 1 - PCV) 02/06/2000 Zoster Immunization (1 of 2) 02/06/2000 Influenza Immunization (#1) 2024 SARS-COV-2 Immunization ( - season) 2024 Respiratory Syncytial Virus (RSV) Immunization (Adult) (1 - 1-dose 75+ series) 2025 Hepatitis B Immunization Aged Out No longer eligible based on patient's age to complete this topic Human Papillomavirus (HPV) Immunization Aged Out No longer eligible b ased on patient's age to complete this topic Meningococcal Immunization (ACWY) Aged Out No longer eligible based on patient's age to complete this topic Rotavirus Immunization Aged Out No lo nger eligible based on patient's age to complete this topic
--- OUTSIDE RECORDS SUMMARY | 2025-02-11 08:59 | XMS_ITS | Clinical Summary ---
Author Organization [facility] Address [address] [facility] [place] [address] Care Team Providers Care Plastic Technician Name Role Phone Rolly Doll Primary Care Provider [phone] [facility],non-owned Affiliates and Associated Physician Practices is amultiple site organization consisting of ambulatory clinics and hospital sitesin [place], [place], [place] and [place]. This disclosure is being madepursuant to the Care Everywhere program and may not contain all information available regarding this patient. Last updated 17.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 Gender Identity Not on file Sexual Orientation [...] Last Done Comments COLOGUARD (AGES 45-75) - COL ON CA SCREENING 1950 COLON MONITORING 1950 COLONOSCOPY [...] EXAM WITH MONOFILAMENT 08/31/2018 DIABETES-HGB A1C 08/31/2018 DIABETES-SERUM CREATININE 07/20/2022 07/20/2021 DEPRESSION SCREENING 03/31/2024 DIABETES - URINE PROTEIN SCREENING 03/31/2024 COVID-19 VACCINE (1 - 2024-2 6 season) 2024 INFLUENZA VACCINE (#1) 2024 Respiratory Syncytial Virus (RSV) Vaccine Pt: [...] to complete this topic MENINGOCOCCAL (Group B) VACC INE SHARED DECISION-MAKING Aged Out No longer eligibl e based on patient's age to complete this topic MENINGOCOCCAL GROUPS A/C/Y/W VACCINE Aged Out No longer eligible b ased on patient's age to complete this topic Medical Devices Implanted Type Area Oiler Bander Device Identifier Shelf Expiration Date Model / Serial / Lot Tube Vnt Berny 1.27mm 1.5mm Clr Btn Ear Implanted:Qty: 1 on 08/13/2018 by Nima Mora MD at [facility] Left: Nose [employer] 09/16/2026 [id number] / / [id number] Procedures Procedure Name Priority Date/Time Associated Diagnosis [...] LAB - CHEMISTRY ORDERABLES Fi nal Result [facility] [address] [place] [address], [facility] [phone] from Last 3 Months or Most Recently Relevant to Health Maintenance Insurance [employer] WELL[employer] Advance Directives * Full Code (Latest Code Status on File) Date Activated Date Inactivated Comments 07/23/2021 12:10 PM 07/24/2021 12:12 PM * Full Code Date Activated Date Inactivated Comments 08/13/2018 9:04 AM 08/13/2018 8:47 PM Care Teams Plastic Technician Relationship Specialty Start Date End Date Rolly Doll DO [address] [place] [address] PCP - General 08/10/18
--- OUTSIDE RECORDS SUMMARY | 2025-02-11 08:59 | XMS_ITS | Clinical Summary ---
Author Organization [facility] Address 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 Gender Identity Not on file Sexual Orientation [...] Health Maintenance Due Date Last Done Comments DTAP/TDAP/TD VACCINES (1 - Tdap) 1969 COLORECTAL SCREENING 1995 Colorectal Cancer Screening 1995 FIT-DNA Q 3 years 1995 FIT/FOBT Q 1 year 1995 Flex Sig/CT Colonography Q 5 years 1995 PNEUMOCOCCAL VACCINE 50+ YEARS (1 of 1 - PCV) 02/06/20 00 ZOSTER VACCINE (1 of 2) 02/06/2000 INFLUENZA VACCINE (#1) 2024 RSV VACCINE (60+ or ) (1 - 1-dose 75+ series) 2025 Advance Directives For more information, please contact: [phone] * Full Code (Latest Code Status on File) Date Activated Date Inactivated Comments 01/05/2011 9:51 PM 01/06/2011 6:32 PM
[2025-02-11 09:56] LABS: Hemoglobin A1C 5.8 % (<5.7)
[2025-02-11 13:49] LABS: Alanine Aminotransferase 75 U/L (6-50); Albumin Level 4.6 g/dL (3.5-5.1); Alkaline Phosphatase 109 U/L (38-126); Anion Gap 9 mmol/L (4-12); Aspartate Amino Transferase 55 U/L (17-59); Bilirubin,Total 1.1 mg/dL (0.2-1.3); Blood Urea Nitrogen 23 mg/dL (9-20); Calcium 9.8 mg/dL (8.4-10.2); Carbon Dioxide 32 mmol/L (22-30); Chloride 96 mmol/L (98-107); Cholesterol 136 mg/dL (0-200); Estimated Glomerular Filt Rate > 60; Glucose 116 mg/dL (65-110); HDL Direct 41 mg/dL; Potassium 4.4 mmol/L (3.4-5.0); Sodium 137 mmol/L (137-145); Total Protein 8.1 g/dL (6.3-8.2); Triglycerides 196 mg/dL (<150)
== END 2025-02-11 08:45 | disposition home or self-care (01) ==
PROVIDERS: PCP Nurse Practitioner; Visit Provider Nurse Practitioner
DX: E78.5 Hyperlipidemia, unspecified (principal); E11.9 Type 2 diabetes mellitus without complications
CPT/HCPCS: 36415; 80053; 80061; 83036